=== PATIENT | female | born 1950 | race Caucasian/White ===

== ENCOUNTER → 2018-05-26 15:19 | Outpatient (CLI) | payer MEDICARE, SELFPAY ==
[2018-05-15 08:04] VITALS: BMI 22.8
--- NOTE | 2018-05-26 15:20 | MRI_ITS ---
STUDY: MRI RIGHT SHOULDER WITHOUT AND WITH CONTRAST REASON FOR EXAM: Female, 67 years old. Right shoulder pain since injury in February 2018. By report, patient had an abnormal MRI of the shoulder in April at another facility. TECHNIQUE: Standardized fat and water weighted pulse sequences were obtained in all 3 orthogonal planes before and after the administration of 6 cc of Gadavist contrast intravenously. COMPARISON: Right shoulder x-rays dated March 18, 2018 showing an enchondroma or bone infarct in the proximal humeral metaphysis. FINDINGS: There is supraspinatus, infraspinatus and subscapularis tendinosis without a full-thickness tear (coronal series 4 images 10-15, axial series 3 images 8-13). Normal teres minor tendon. Normal supraspinatus muscle. Normal infraspinatus muscle. Normal subscapularis muscle. Normal teres minor muscle. There is moderate arthrosis of the glenohumeral joint with a small glenohumeral joint effusion (axial series 3 images 8-13). There is osteophyte formation in the humeral head (axial series 3 image 10). There is a proximal humeral metaphyseal lesion with extensive patchy enhancement which extends from the appendiceal surface laterally into the metaphysis. The enhancement pattern is most consistent with avascular necrosis of the proximal humerus. The lobulated lesion in the humeral metaphysis with enhancement may represent a continuation of avascular necrosis or an enchondroma. There are no aggressive features to this lesion (coronal series 6 images 7-19). Normal biceps labral complex. Normal intracapsular long biceps tendon. Normal labrum. Normal capsulo- ligamentous complex. Normal rotator interval. There is mild acromioclavicular joint hypertrophy with narrowing of the subacromial space (coronal series 6 images 14-18). There is a Type II morphology (curved), with a neutral orientation. There is subacromial-subdeltoid bursal fluid with peripheral enhancement (coronal series 6 images 12-18). Normal visualized coracohumeral and coracoacromial ligaments. Normal quadrilateral space. Normal axillary space. Normal deltoid muscle. Normal trapezius muscle. MRI/Upper Ext Jt Only W/Contrast IMPRESSION: Supraspinatus, infraspinatus and subscapularis tendinosis without a full-thickness tear. Moderate arthrosis of the glenohumeral joint with a small glenohumeral joint effusion. Osteophyte formation in the humeral head. Mild acromioclavicular joint hypertrophy with narrowing of the subacromial space. Fluid in the subacromial-subdeltoid bursa. Enhancement pattern of the proximal humerus most compatible with avascular necrosis. However, the lesion in the proximal humeral metaphysis may be a extension of avascular necrosis or a proximal humeral enchondroma. No aggressive features are identified. Electronically Signed: Gage Almanzar MD at 13:14 EST , Service support ,
== END ==
PROVIDERS: Family Provider Family Medicine; PCP Family Medicine; Referring Provider Orthopaedic Surgery; Visit Provider Orthopaedic Surgery
DX: D16.01 Benign neoplasm of scapula and long bones of right upper limb (principal); M75.121 Complete rotator cuff tear or rupture of right shoulder, not specified as traumatic
CPT/HCPCS: 73222; A9585

== ENCOUNTER 2018-10-26 09:00 | Outpatient (RCR) | payer MEDICARE, SELFPAY ==
--- NOTE | 2018-09-15 15:58 | HP.PTEVAL ---
Patient's Visit Information ZRAI BEY is a 67 year old F referred to Physical Therapy by Adriano Moncada DO with a diagnosis of Chondrosarcoma, AVN, R RCR Tear impingement, Jt effusion. Date of Evaluation: 09/15/18 Physical Therapist: Henrry Tanner, PT, CHIDI, SCS, CSCS - Visit Plan Frequency: 2x /Week Duration: 6 Weeks Plan: Plan to see Zari for 2xweek for a lite rototor cuff and scapular strengthening program. - Subjective Findings: Began to experience shoulder pain about 2years ago. Sought the help of Dr Cox who referd to [facility] oncology. On xray saw growth in shoulder. Followed up ith [facility] doctor and he rechecks every 3 months to see if growth is actively growing. - Pain Right Shoulder Pain Intensity (Out of 10): 1 Pain Intensity Range: 1, 4 Comment: Depends on activing - Objective Right hand dominant displays a grib strength of 60/65 L. MMT L/R15.3/6.2 ext L Int 27 R 14. Decreased Rom Shd flexion 160, ext 60, int nt abd 160. Positive impingement flexion overpress, abduction ext - Goals Goal 1:: Return demo correctly HEP Goal Time Frame: 1 Week Goal 2:: IMprove MMT 10% within 3 weeks Goal Time Frame: 2 Weeks Goal 3:: Improve ROM 10% WITHIN 3 WEEKS. - Rehabilitation Potential Physical Therapy Diagnosis: Chondrosarcoma, AVN, R RCR Tear impingement, Jt effusion Rehabilitation Potential: Fair - Anticipated Interventions Patient/Client Instruction: Educate patient on: Condition, Plan of Care For the Purpose of:: To decrease pain, To decrease swelling/inflammation, To increase ROM, To improve ability to perform ADL's Therapeutic Exercise to Include: Strength training, Endurance training, Postural training Thank you for the opportunity to evaluate your patient. For Medicare and Medicare HMO plans, please review the plan of care and approve it. It will need to be FAXED BACK to us at [phone] for Medicare purposes. For Medicare only, by signing this I certify the plan of care. Please let me know if there are questions or concerns regarding this plan of care. Physician Signature: Date:
== END 2018-10-26 19:00 | disposition home or self-care (01) ==
LOC: PT 09:00
PROVIDERS: Family Provider Family Medicine; PCP Family Medicine; Referring Provider Orthopaedic Surgery; Visit Provider Orthopaedic Surgery
DX: M75.111 Incomplete rotator cuff tear or rupture of right shoulder, not specified as traumatic (principal); M87.021 Idiopathic aseptic necrosis of right humerus; M19.90 Unspecified osteoarthritis, unspecified site
CPT/HCPCS: 97110; 97162

== ENCOUNTER → 2019-11-30 08:45 | Outpatient (CLI) | payer MEDICARE, SELFPAY ==
--- NOTE | 2019-11-30 08:53 | NM_ITS ---
CLINICAL: 69-year-old female with suspected right upper extremity neoplasia. WHOLE BODY 99m Tc MDP RADIONUCLIDE BONE SCINTIGRAPHY COMPARISON: None available FINDINGS: Following the intravenous administration of 25.6 mCi of 99m Tc MDP, whole body bone images reveal: 1. Increased radiopharmaceutical concentration is identified in the right proximal humeral metaphysis-diaphysis. 2. Enhanced tracer uptake is noted in the mid cervical spine posteriorly on the right, the acromioclavicular compartment of the left shoulder, left wrist, bilateral knees, fifth lumbar vertebra posteriorly on the left, right and left ankle articulations. 3. The remaining skeletal structures are scintigraphically unremarkable with normal-appearing renal images and urinary bladder activity identified. NM/Bone Scan Whole Body IMPRESSION: 1. The increase in radiopharmaceutical concentration observed in the right proximal humerus may be further investigated with plain film radiography and likely warrants histopathologic investigation. 2. Degenerative arthritis appears expressed in the cervical and lumbar spine, left shoulder, left wrist, bilateral knees, right-left ankles. Electronically Signed: Trey Hubbard DO at 22:06 EDT Tel , Service support ,
== END ==
PROVIDERS: PCP Family Medicine; Referring Provider Orthopaedic Surgery; Visit Provider Orthopaedic Surgery
DX: R68.89 Other general symptoms and signs (principal); D49.2 Neoplasm of unspecified behavior of bone, soft tissue, and skin
CPT/HCPCS: 78306

== ENCOUNTER → 2019-12-06 07:46 | Outpatient (CLI) | payer MEDICARE, SELFPAY ==
--- NOTE | 2019-12-06 07:59 | CT_ITS ---
STUDY: CT CHEST WITHOUT CONTRAST REASON FOR EXAM: Female, 69 years old. RT HUMERUS LESION, SUSPECTED NEOPLASM, R/O METS RADIATION DOSAGE (If Supplied By Facility): CTDIvol = ( 9.84 ) mGy, DLP = ( 312.40 ) mGycm TECHNIQUE: Transaxial imaging was performed without the administration of intravenous contrast material. Multiplanar coronal and sagittal images were reformatted. Individualized dose optimization techniques were used for this CT. COMPARISON: None. FINDINGS: Small benign appearing bilateral axillary lymph nodes. Minimal increased markings at the lung bases likely more prominent on the right side suggestive basilar atelectasis. No evidence of pulmonary metastasis. There is no demonstrated pleural abnormality. There are calcifications of the coronary arteries. There are multiple small lymph nodes within the mediastinum, which are normal in size and morphology most compatible with reactive lymph hyperplasia. Normal hilar regions. Normal unenhanced pulmonary arteries. Normal aorta arch and descending thoracic aorta. There are multi-level degenerative changes of the thoracic spine. There is evidence of a soft tissue mass with bony destruction involving the humeral head and metaphyseal region of the proximal right humerus. There is evidence of soft tissue calcifications posteriorly. There is a 4 cm x 3.4 cm cyst in the posterior medial aspect of the inferior aspect of the right lobe of the liver. CT/Chest without Contrast IMPRESSION: No evidence of a pulmonary metastasis. Destructive lesion involving the right humeral head and metaphyseal region of the right humerus with soft tissue mass lesion and soft tissue calcification. Electronically Signed: Marshal Martinez, at 9:40 EDT , Service support ,
== END ==
PROVIDERS: PCP Family Medicine; Referring Provider Orthopaedic Surgery; Visit Provider Orthopaedic Surgery
DX: D49.2 Neoplasm of unspecified behavior of bone, soft tissue, and skin (principal)
CPT/HCPCS: 71250

== ENCOUNTER → 2019-12-29 10:15 | Outpatient (CLI) | payer MEDICARE, SELFPAY | PROVIDERS: PCP Family Medicine; Referring Provider Orthopaedic Surgery; Visit Provider Orthopaedic Surgery | DX: Z11.59 Encounter for screening for other viral diseases (principal) | CPT/HCPCS: 87635; G2023; U0003 ==

== ENCOUNTER 2020-07-03 10:30 | Outpatient (RCR) | payer MEDICARE, SELFPAY ==
--- NOTE | 2020-03-06 17:13 | HP.PTEVAL_ITS ---
Patient's Visit Information MARCUS BEY is a 69 year old F referred to Physical Therapy by Dr. 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 Date of Evaluation: 03/06/20 Physical Therapist: Blanka Gonzalez DPT - Visit Plan Frequency: 2x /Week Duration: 4 Weeks Plan: NO shoulder ROM, strength or WB through right UE- focus on edema control with gentle massage, modalities of heat/parafin if able, and ROM of elbow and w rist - Subjective Bone marrow tumbor that changed into malignant. Had 5 inches of her humerus removed and a portion of the scapula January 02. Has been in a sling and pillow since the surgery. She does not take her sling off- is sink bathing at this point. Sleeps in a reclyner and is anxious to get back into bed- is not waking up throughout the night. Right hand dominate. She reports that the shoulder aches and the swelling makes it feel tight. Worst: 10/14 Agg: nothing that she can think of Eases: she iced it in/off and has also tried heat but nothing seems to change things. Best: 07/16 but it always has some achy pains. Pain is located in the shoulder and into the shoulder blade. No radiating pain. No N/T in the fingers just swollen from lack of movement. No neck pain- blurred vision, dizziness of lightheaded. Fully I prior to the surgery- goal is to get back to doing all things indepedently. Likes to mow grass, nguyễn, garden. Recent x-rays Total shoulder was placed. PMHx: none Meds: Vitamin D, nerve renew, omega and Aleve 2x a day and Tylenol 2x a day. Back to Mar 28 - Objective Posture: FH, RS, increased kyphosis- significant guarding of the right UE with sling and pillow. Observation: incision healing well no s/s of infection- sling properly fitting. Edema: significant throughout the bicep, wrist and hand-17cm around wrist. ROM: Shoulder: NOT TESTED Elbow: Flexion: 135 degrees Extn: 90 degrees from neutral Sup: nuetral, Pro: WNL, Wrist: Flexion: 35 degrees Extn: 15 degrees. 2 away from composite fist. Strength: not tested - Goals Goal 1:: Patient will be I with HEP and progression Goal Time Frame: 4-6 Weeks Goal 2:: Patient will demo full ROM of the elbow Goal Time Frame: 4-6 Weeks Goal 3:: Patient will make a fist with the right hand Goal Time Frame: 4-6 Weeks - Rehabilitation Potential Physical Therapy Diagnosis: Patient presents s/p right humerus resection and scapular resection due to osteosarcoma with placement of total shoulder. Following MD order no ROM or shoulder- elbow/wrist and hand presents with severe edema, decreased ROM and muscular endurance leading to increase difficutly with ADL's. Rehabilitation Potential: Good - Anticipated Interventions Patient/Client Instruction: Educate patient on: Benefits of Fitness Program Therapeutic Exercise to Include: Body mechanics, Postural training, Passive ROM, Active ROM For the Purpose of:: To improve muscle performance and motor function Manual Therapy Techniques to Include: Passive ROM, Soft tissue mobilization For the Purpose of:: To increase ROM TENS: No Cryotherapy (ice pack, ice massage): Yes Thermo therapy (hot pack): Yes Ultrasound (thermal/non thermal): No Paraffin bath: Yes Thank you for the opportunity to evaluate your patient. For Medicare and Medicare HMO plans, please review the plan of care and approve it. It will need to be FAXED BACK to us at [phone] for Medicare purposes. For Medicare only, by signing this I certify the plan of care. Please let me know if there are questions or concerns regarding this plan of care. Physician Signature: Date:
--- NOTE | 2020-04-20 10:26 | HP.PTREVAL_ITS ---
Dr. 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 Please see the progress note below for an update on the physical therapy plan of care! Subjective: Patient reports that she is compliant with HEP Objective/Function: Posture: FH, RS, increased kyphosis-less guarding of the right UE. Observation: incision healing well no s/s of infection- no sling- does wear compression glove on right hand. Edema: continues to demonstrate sig nificant edema. ROM: Shoulder: NOT TESTED Elbow: Flexion: full Extn: 40 degrees from neutral Sup: 60 degrees, Pro: WNL, Wrist: Flexion: 35 degrees Extn: 40 degrees. 1 away from composite fist -pt reports that she can make a full fist at home. Shoulder: PROM: flexion: 129 degrees Abd: 110 degrees, IR/ER: WNL Strength: not tested Plan Plan: Continue current POC- add shoulder PROM gentle Goals Goal 1:: Patient will be I with HEP and progression Goal Time Frame: 4-6 Weeks Goal 2:: Patient will demo full ROM of the elbow Goal Time Frame: 4-6 Weeks Goal 3:: Patient will make a fist with the right hand Goal Time Frame: 4-6 Weeks Anticipated Interventions Patient/Client Instruction: Educate patient on: Benefits of Fitness Program Therapeutic Exercise to Include: Body mechanics, Postural training, Passive ROM, Active ROM For the Purpose of:: To improve muscle performance and motor function Manual Therapy Techniques to Include: Passive ROM, Soft tissue mobilization For the Purpose of:: To increase ROM TENS: No Cryotherapy (ice pack, ice massage): Yes Thermo therapy (hot pack): Yes Ultrasound (thermal/non thermal): No Paraffin bath: Yes Please do not hesitate to contact me at [phone] by phone or if you have questions or concerns regarding this new plan of care! Sincerely, Blanka Gonzalez DPT
--- NOTE | 2020-05-17 10:33 | HP.OTEVAL ---
Patient's Visit Information MARCUS BEY is a 69 year old F, referred to Occupational Therapy by Dr. Claudio Valdez MD, with a diagnosis of chondrosarcoma right humerus. Date of Evaluation: 05/17/20 Occupational Therapist: April Romero, JACQUI/Silverio, CHT - Subjective This 69 year old female was seen for OT eval with dx of chondrosarcoma right humerus pt had right shoulder Hemiarthroplasty 4.5 months ago. pts states she continues with PT for shoulder ROM and edema. She arrives today with concerns with graps and fine motor ability. - ADLs Dressing: Button shirt Fasteners: Tie shoes, Buttons, Zippers, [place] Eating: Bring food to mouth, Use silverware, Drink from glass Comments: pt is using left hand Bathing: Handle washcloth & soap, Wash hair, Squeeze shampoo bottle Comments: uses right hand only about 40% of the time - Pain right UE 2 Pain Intensity Range: 2 - ROM Shoulder: defer to PT Elbow: right -30/140 left 0/145 Forearm: right WNL left WNL Wrist: right WNL left WNL ROM Comments: pt demo the ability to form a composite fist - Strength Elbow: right -30/140 left 0/145 Forearm: right/left WNL Wrist: right/left WNL Trial Court Judge: right 20# left 55# Lateral Pinch: right 10# left 12# Tripod Pinch: right 6# left 12# Tip-to-Tip Pinch: right 6# left 10# - Edema Elbow: right 27cm left 23cm Wrist: right 16cm left 14.5cm Other: right forearm 25cm left 22cm - Sensation Sensation Comments: radha. states dorsal side of arm from shoulder/deltoid region to mid forearm feels different - Nine Hole Peg Right: 57.64 Left: 22.25 - In-Hand Manipulation Finger to Palm Translation: Moderate - Right, Normal - Left Palm to Finger Translation: Moderate - Right, Normal - Left Shift: Mild - Right, Normal - Left Rotation: Mild - Right, Normal - Left - Quick DASH-Disab of Arm,Shoulder& Hand Quick DASH Score: 29.5450 - Goals Goal:: pt will demo a increase in right technical project coordinator strength to 45# or greater to increase pts ind. with ADLs and IADLs by d.c Goal:: pt will demo a increase in pt right elbow flex/ext by 15* to increase pts ind. with ADLs and IADLs by d.c Goal:: pt will demo the ability to pharmacy picking technician 10 coins with right hand and place down one at a time with out dropping more than 1 by d/c. pt will demo a reduction in right 9-hole peg test by 5 sec. demo a increase in FMS by d/c Goal:: pt kajal demo a reduction in right forarm Circumference by 2cm or greater by d/c - Rehabilitation General Assessment: pt demo with a decline in her right FMS as this is her domint hand pt limited with bilateral hand skills and right handed skills as feeding herself, drinking from glass etc. pt would benefit from skilled OT services 1-2 x week for 4 weeks to increase pts ind. with ADLs and IADLs. Rehabilitation Potential: Good - Anticipated Interventions A/AAROM/PROM, Strengthening, Modalities, Orthoses, Fine Motor Coord/Franko, Education re assistive Equipment - Visit Plan Frequency: 2x /Week Duration: 4 Weeks TEXT: Thank you for the opportunity to evaluate your patient. For Medicare and Medicare HMO plans, please review the plan of care and approve it. It will need to be FAXED BACK to us at [phone] for Medicare purposes. Please let me know if there are questions or concerns regarding this plan of care. Physician Signature: Date:
--- NOTE | 2020-06-26 11:40 | HP.PTREVAL ---
Dr. 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 Please see the progress note below for an update on the physical therapy plan of care! Subjective: Patient reports that she has not seen any real improvement in the last few weeks but is moving it at home. She is not using it any more than she was before. She feels like she can do a lot more but she is frustrated that the arm doesn't do exactly what she wants to. Feels like weight. Uses her left and right hand to feed herself. The arm is still swollen and has a few spots that bother her. Does not fel the pull across the incision anymore but feels like a band around the whole arm. Sleep: not disturbed. She has no pain just feels heavy. Hard to give an actual number for improvement due to not sure what she should feel. Goes back to [facility] on July 25. Objective/Function: Posture: right shoulder seems to be subluxed. Gait: decreased arm swing with guarding of the right UE. [place]: not tender to touch. ROM: Wrist: flexion: 60 extn: 65 Fist: Full Elbow:Flexion: full Extn: 10 degrees from neutral. PROM: Shoulder: Flexion: 110 degrees abd: 95 degrees, IR/ER: full. Strength: Elbow: Elbow ext: 15.6 flexion: 23.1 Shoulder at neutral:Extn: 16.4 Flexion:19.1 Abd: 22.1 IR: 5.5 ER: 0 Automotive Service Management Teacher: 20lbs of force Plan Plan: Continue- PT will call MD for further instructions Goals Goal 1:: Patient will be I with HEP and progression Goal Time Frame: 4-6 Weeks Goal Progress: Progressing Goal 2:: Patient will demo full ROM of the elbow Goal Time Frame: 4-6 Weeks Goal Progress: Progressing Goal 3:: Patient will make a fist with the right hand Goal Time Frame: 4-6 Weeks Goal Progress: Progressing Anticipated Interventions Patient/Client Instruction: Educate patient on: Benefits of Fitness Program Therapeutic Exercise to Include: Body mechanics, Postural training, Passive ROM, Active ROM For the Purpose of:: To improve muscle performance and motor function Manual Therapy Techniques to Include: Passive ROM, Soft tissue mobilization For the Purpose of:: To increase ROM TENS: No Cryotherapy (ice pack, ice massage): Yes Thermo therapy (hot pack): Yes Ultrasound (thermal/non thermal): No Paraffin bath: Yes Please do not hesitate to contact me at [phone] by phone or if you have questions or concerns regarding this new plan of care! Sincerely, MARY GRACE BenitezT
--- NOTE | 2020-06-28 10:38 | OTREVAL_ITS ---
Dr. Claudio Valdez MD, It has been my pleasure to treat MARCUS BEY over the last 8 visits for chondrosarcoma right humerus. Please see the progress note below for an update on the occupational therapy plan of care! Subjective: pt arrives to therapy- pt still frustrated that her arm does not do what she wants it to do- feels limitations is with shoulder. pt reports she is performing all ADls and IADLs at DIVYA level- spouse does not have to help her with bathing or dressing. pt is ind. with meal prep. pt ind with zippers and buttons. pt still dropping objects is she puts them in her right hand. Objective/Function: pt demo with right grinder needle tip strength at 30# a increase from 20#. right lateral pinch at 20# a increase from 10#. right tripod pinch 14# a increase from 6# and right tip pinch 12# a incrase from 6#. pt demo full hand/wrist and forearm ROM- pt continues to be limited with bieceps/and shoulder movement limiting pts ind. with fluid motion of right UE. pt demo a increase in FM dext with testing 9 hole peg test at 32.72 sec a decrease in time from 57.64. Plan Plan: cont two more visits to ensure understanding of HEP Goals - Goals Patient Goals: Regain Mobility, Regain Strength, Use Hand/Wrist/Arm Normally Again, Be More Independent in ADLS Goal:: pt will demo a increase in right grinder needle tip strength to 45# or greater to increase pts ind. with ADLs and IADLs by d.c Goal:: pt will demo a increase in pt right elbow flex/ext by 15* to increase pts ind. with ADLs and IADLs by d.c Goal:: pt will demo the ability to cone picker 10 coins with right hand and place down one at a time with out dropping more than 1 by d/c. pt will demo a reduction in right 9-hole peg test by 5 sec. demo a increase in FMS by d/c Goal:: pt kajal demo a reduction in right forarm Circumference by 2cm or greater by d/c Anticipated Interventions Anticipated Interventions: A/AAROM/PROM, Strengthening, Modalities, Orthoses, Fine Motor Coord/Franko, Education re assistive Equipment Please do not hesitate to contact me at [phone] by phone or if you have questions or concerns regarding this new plan of care! Sincerely, April Romero OTR/L, CHT
--- NOTE | 2020-07-03 11:01 | HP.PT.NRP ---
MARCUS BEY was seen in my office for initial evaluation on 03/06/20. The following Plan of Care was established for this patient: Initial Frequency: 2x /Week Initial Duration: 4 Weeks Patient/Client Instruction: Educate patient on: Benefits of Fitness Program Therapeutic Exercise to Include: Body mechanics, Postural training, Passive ROM, Active ROM For the Purpose of:: To improve muscle performance and motor function Manual Therapy Techniques to Include: Passive ROM, Soft tissue mobilization For the Purpose of:: To increase ROM TENS: No Cryotherapy (ice pack, ice massage): Yes Thermo therapy (hot pack): Yes Ultrasound (thermal/non thermal): No Paraffin bath: Yes This patient was last seen in our office . Pertinent comments regarding their Physical therapy will appear below: Patient has made significant progress in therapy with her elbow, wrist and hand. After speaking to the PA for the surgeon and the patient. PT feels that continuation of home exercise program is appropriate and d/c from formal PT at this time. Encoruaged patient to call or follow up with questions as needed. At this point I will be discontinuing this patient from physical therapy. I would be happy to see this patient again in the future if found appropriate by the physician. Thank you! Blanka Gonzalez DPT
== END 2020-07-03 19:00 | disposition home or self-care (01) ==
LOC: PT 10:30
PROVIDERS: PCP Family Medicine; Referring Provider Orthopaedic Surgery; Visit Provider Orthopaedic Surgery
DX: C40.01 Malignant neoplasm of scapula and long bones of right upper limb (principal); Z96.611 Presence of right artificial shoulder joint
CPT/HCPCS: 97110; 97140; 97162; 97164; 97166; 97530